=== PATIENT | male | born 1995 | race Caucasian/White ===

== ENCOUNTER 2020-06-27 14:22 | Emergency (ER) | payer MEDICAID, SELFPAY ==
[2020-06-27 14:23] VITALS: BP 127/82; PULSE 93; RESP 16; TEMP 37.1; O2SAT 98; BMI 23.9
--- NOTE | 2020-06-27 14:47 | ED.VIS.GEN ---
History of Present Illness Chief Complaint: Other, Pain/Inj Informant: Patient Narrative: Patient is a previously healthy 24-year-old male who presents to the emergency department for right shoulder pain. This has been present over the past 2 days. He woke up in the morning and the pain was there. He is not sure if he slept funny on it. He does use his right arm with repetitive movements at work. Denies any other strenuous or abnormal activity to incite the event. He has not been taking anything for this. Any movement of the right arm or neck makes the pain worse. At rest it does not bother him too much. He denies any loss of sensation of the extremity. Has never had this happen before in the past. Denies any headache. No chest pain or shortness of breath. No overlying skin changes. No joint swelling. Past Medical History - Allergies and Home Meds Allergies/Adverse Reactions: Allergies No Known Allergies Allergy (Verified 06/27/20 14:23) Primary Care Physician: Care Physician,No Primary [Primary Care Provider] - Prior records reviewed: Yes Past Medical History: None Surgical History: no surgical history Smoking Status: Current every day smoker Alcohol: Rare Drugs: None Review of Systems All systems negative except as indicated General: Denies: Chills, Fever, Sweats Eyes: Denies: Visual changes - bilaterally ENT: Denies: Rhinorrhea, Sore throat Cardiovascular: Denies: Chest pain, Palpitations Respiratory: Denies: Dyspnea, Cough, Dyspnea on exertion Gastrointestinal: Denies: Abdominal pain, Nausea, Vomiting Genitourinary: Denies: Dysuria, Hematuria, Frequency Musculoskeletal: Reports: Neck pain - Right-sided, Extremity Pain - Right shoulder. Denies: Myalgias, Back pain, Swelling Skin: Denies: Rash, Wounds Neurological: Denies: Headache, Weakness, Numbness Physical Exam Vital Signs/Narrative: Vital Signs Temp Pulse Resp BP Pulse Ox 06/27/20 14:23 98.7 F 93 16 127/82 H 98 Inital Vital Signs reviewed: Yes General: Well nourished, Well developed, No Acute Distress Head: Normocephalic, Atraumatic Eyes: Perrl, EOMI ENT: Moist mucous membranes, No rhinorrhea Neck: Supple, Nontender, - - No midline spine tenderness Cardiovascular: Regular rate, Regular rhythm, No murmurs Respiratory: No distress, CTA bilaterally, Chest nontender Abdomen: Soft, Nontender, Nondistended Back: Nontender, Normal Inspection Extremities: Nontender, No edema, Tenderness - Right trapezius tenderness to palpation. Does feel tight musculature along the right cervical paraspinal musculature. No overlying skin changes. 5 out of 5 muscle strength in both extremities. 2+ radial pulse. Has full range of motion of the right shoulder. Skin: Normal color, No rash Neurological: Alert, Oriented x3, Cranial nerves II-XII grossly intact, Normal Strength, Normal Sensation Psychological: Normal affect, Normal Mood Diagnostic/Tx/Re-eval - Medical Decision Making Patient presents to the emerge part for nontraumatic right shoulder/right neck pain. On physical exam he does have tight musculature and is tender to palpation. Movements make it worse. This does seem musculoskeletal in nature. No chest pain or shortness of breath. Vital signs within normal limits. This does not seem like a referred pain. I do recommend he trial ibuprofen and Tylenol [id number]. If this does not help he can take Flexeril. He understands that this will make him tired and should not operate machinery while taking it. He does not have a PCP so he was given a follow-up from the doc list. If this pain continues get worse or develops any other concerning symptoms he is to return to the [facility] department immediately. He understands and is agreeable this plan. He is requesting a work excuse from yesterday today but will be provided one for today. ED Disposition - Plan for ED Patient: Disposition: Home or Assisted Living Diagnosis: Right shoulder pain Instructions: ED Shoulder Pain Uncertain Cause Prescriptions: cycloBENZAPRine HCl [Flexeril] 10 mg PO TID PRN 3 Days #9 tab PRN Reason: Muscle Spasm Prescription Printed Referrals: Care Physician,No Primary [Primary Care Provider] - Vasyl,Jocelyne, DO [NON-STAFF] - 3-5 Days
== END 2020-06-27 15:07 | disposition home or self-care (01) ==
PROVIDERS: Emergency Provider Emergency Medicine
DX: M25.511 Pain in right shoulder (principal); F17.200 Nicotine dependence, unspecified, uncomplicated
CPT/HCPCS: 99282

== ENCOUNTER 2020-10-16 08:41 | Emergency (ER) | payer MEDICAID, SELFPAY ==
[2020-10-16 08:42] VITALS: BP 143/87; PULSE 85; RESP 17; TEMP 36.6; O2SAT 100
--- NOTE | 2020-10-16 08:55 | ED.DCSUM_ITS ---
History of Present Illness Chief Complaint: Abd Pain Informant: Patient Onset: Yesterday Context: Sudden Onset Timing: Continuous Quality: Pain Location: Left upper quadrant Current Severity: Mild Maximum Severity: Moderate Worsened by: Movement Relieved by: Lying down Associated Symptoms: Nausea, decreased urine output Narrative: Patient is a 24-year-old male who presents with left upper quadrant bowel pain. The pain is associated with nausea without vomiting, diarrhea or constipation. He is not noted any change in the color of his stool, consistency of his stool or caliber of his stool. He denies fever, chills or night sweats. He denies prior episode. He denies cough or pleuritic chest pain. He does report decreased urine output for 2 weeks. He denies urgency, frequency or hematuria. There is no history of renal ureterolithiasis. He denies history of pancreatitis or alcohol consumption. He does admit to smoking 1 pack/day and use of marijuana. There is no history of trauma. He has not noted any rash or skin lesions. Prior similar symptoms: No Recent Illness/Hospitalization: No - Past Medical History (1) No significant past medical history Status: Acute Past Medical History - Allergies and Home Meds Allergies/Adverse Reactions: Allergies No Known Allergies Allergy (Verified 10/16/20 08:42) Primary Care Physician: Care Physician,No Primary [Primary Care Provider] - Prior records reviewed: No Past Medical History: None Surgical History: no surgical history Lives: Alone Smoking Status: Current every day smoker Alcohol: None Drugs: Marijuana Review of Systems General: Denies: Chills, Fever, Malaise, Subjective, Sweats, Weight loss Eyes: Denies: Visual changes - bilaterally, Blurred Vision - bilaterally ENT: Denies: Bilateral ear pain, Rhinorrhea, Sore throat Cardiovascular: Denies: Chest pain, Palpitations, Heart racing Respiratory: Denies: Dyspnea, Cough, Dyspnea on exertion Gastrointestinal: Reports: Abdominal pain, Nausea. Denies: Vomiting, Diarrhea, Constipation, Melena, Hematochezia Genitourinary: Reports: - - Decreased urine output as previously documented. Denies: Dysuria, Hematuria, Frequency Musculoskeletal: Denies: Myalgias, Arthralgias, Neck pain, Back pain, Swelling, Extremity Pain, -, - Skin: Denies: Rash, Wounds Neurological: Denies: Headache, Weakness, Numbness Psych: Denies: Depression, Anxiety Endocrine: Denies: Polyuria, Polydipsia Hematologic: Denies: Easy bruising, Easy bleeding Physical Exam Vital Signs/Narrative: Vital Signs Temp Pulse Resp BP Pulse Ox 10/16/20 08:42 97.8 F 85 17 143/87 H 100 Inital Vital Signs reviewed: Yes General: Well nourished, Well developed, No Acute Distress, - - Appears uncomfortable. Head: Normocephalic, Atraumatic Eyes: Perrl, EOMI. Negative for: Pale conjunctiva, Scleral icterus Neck: Supple, Nontender, No lymphadenopathy, No JVD Cardiovascular: Regular rate, Regular rhythm, No murmurs, Normal S1, Normal S2 Respiratory: No distress, CTA bilaterally, Chest nontender Abdomen: Soft, Nondistended, No masses, Tender, Guarding - Left upper quadrant., Hypoactive bowel sounds, - - Abdomen is tympanic to percussion.. Negative for: Nontender, Normal bowel sounds, Rebound tenderness, Hyperactive bowel sounds, Hepatomegaly, Splenomegaly, Mass, Pulsatile mass, Ventral hernia, Umbilical hernia Back: Nontender, Normal Inspection. Negative for: CVA tenderness Extremities: Nontender, No edema Skin: Normal color, No rash, No Trauma. Negative for: Cyanosis, Diaphoresis, Jaundice Neurological: Alert, Oriented x3, Cranial nerves II-XII grossly intact, Normal Strength, Normal Sensation Psychological: Normal affect Diagnostic/Tx/Re-eval Impressions Abdomen/Pelvis CT 10/16/20 10:43 IMPRESSION: Normal enhanced CT of the abdomen and pelvis. Electronically Signed: Hernan Sesay, at 11:15 EST , Service support , 10/16/20 10:43 Abdomen/Pelvis W IV Cont ONLY [CT] Stat Laboratory Results 10/16/20 10/16/20 10/16/20 09:00 09:00 09:05 WBC 9.7 RBC 4.61 Hgb 14.4 Hct 43.4 MCV 94.1 H MCH 31.2 MCHC 33.2 RDW Std Deviation 42.8 RDW Coeff of Susi 12.4 Plt Count 176 MPV 11.8 Immature Gran % (Auto) 0.300 Neut % (Auto) 64.9 Lymph % (Auto) 27.7 [place] % (Auto) 5.1 Eos % (Auto) 1.7 Baso % (Auto) 0.3 Absolute Neuts (auto) 6.3 Absolute Lymphs (auto) 2.67 Nucleated RBC % 0 Sodium 143 Potassium 3.8 Chloride 107 Carbon Dioxide 29.0 Anion Gap 7 BUN 9 Creatinine 0.94 Estim Creat Clear Calc 93.75 Est GFR (MDRD) Af Amer 126 Est GFR (MDRD) Non-Af 104 BUN/Creatinine Ratio 9.6 L Glucose 106 Calcium 8.9 Total Bilirubin 0.40 AST 11 L ALT 18 Alkaline Phosphatase 70 Total Protein 7.1 Albumin 4.2 Globulin 2.9 Albumin/Globulin Ratio 1.4 Lipase 44 L Urine Color Yellow Urine Clarity Clear Urine pH 6.0 Ur Specific [place] 1.020 Urine Protein Negative Urine Glucose (UA) Normal Urine Ketones Negative Urine Occult Blood Negative Urine Nitrite Negative Urine Bilirubin Negative Urine Urobilinogen Normal Ur Leukocyte Esterase Negative Urine RBC 0 SEEN Urine WBC 0 SEEN Ur Squamous Epith Cells 0-5 SEEN Urine Bacteria RARE Urine Mucus 0 SEEN Patient's work-up which included a CBC, comprehensive metabolic panel, lipase, UA and CAT scan are all normal. Patient was informed the cause of his pain is unknown. - Medical Decision Making Differential diagnosis includes abdominal pain of unknown etiology, peptic ulcer disease, pancreatitis, lower lung pneumonia (with no respiratory symptoms and no auscultatory abnormalities). Appropriate lab was ordered. Since he does appear uncomfortable and is tender with guarding he was medicated with morphine and Zofran for his nausea. ED Disposition - Plan for ED Patient: Disposition: Home or Assisted Living Diagnosis: Left upper quadrant abdominal pain of unknown etiology Instructions: ED Unknown Causes of Abdominal Pain Male Prescriptions: Dicyclomine HCl [Bentyl] 20 mg PO TIDAC #20 cap Transmission Status: Pending to [id number] Referrals: Care Physician,No Primary [Primary Care Provider] - Fred Wallace MD [STAFF PHYSICIAN] - 3-5 Days if not improving
[2020-10-16 09:09] LABS: Absolute Lymphocyte Count 2.67 X10^3/uL (0.83-4.51); Absolute Neutrophil Count 6.3 X10^3/uL (2.0-7.7); Basophil# 0.03 X10^3/uL; Basophil% 0.3 % (0-1); Eosinophil# 0.16 X10^3/uL; Eosinophils% 1.7 % (0-5); Hematocrit 43.4 % (40-54); Hemoglobin 14.4 g/dL (13.0-16.5); Lymphocyte # 2.67 X10^3/ul (4.0); Lymphocyte % 27.7 % (19-41); Mean Corp Hgb Conc 33.2 g/dL (32-36); Mean Corpuscular Hgb 31.2 pg (27.0-32.0); Mean Corpuscular Volume 94.1 fL (80-94); Mean Platelet Vol. 11.8 fl (6.2-12.0); Monocyte# 0.49 X10^3/uL; Monocyte% 5.1 % (0-10); NRBC Flagged by Analyzer 0 % (0-5); Neutrophil # 6.27 X10^3/uL (2.7-7.7); Neutrophil % 64.9 % (47-70); Platelet Count 176 K/mm3 (150-450); RBC Distribution Width CV 12.4 % (11.6-14.6); RBC Distribution Width SD 42.8 fl (35.1-43.9); Red Blood Count 4.61 M/mm3 (4.6-6.2); White Blood Count 9.7 K/mm3 (4.4-11.0)
[2020-10-16] MEDS: 0.9% Normal Saline 1,000 ML 150 ML IV (09:10)
[2020-10-16] MEDS: Ondansetron 4 MG/2 ML Vial IV (09:11)
[2020-10-16] MEDS: Morphine 4 MG/ML Syringe IV (09:12)
[2020-10-16 09:21] LABS: Mucous, Urine 0 SEEN /hpf (<or=2+); Red Blood Cells-Urine 0 SEEN /hpf (0-5); White Blood Cells 0 SEEN /hpf (0-5)
[2020-10-16 09:22] LABS: ALB/GLOB Ratio 1.4 RATIO (0.9-2.4); AST(SGOT) 11 U/L (15-37); Alanine Aminotransfer ALT/SGPT 18 U/L (16-61); Albumin, Serum 4.2 g/dL (3.2-5.0); Alkaline Phosphatase 70 U/L (45-117); Anion Gap 7 (5-15); BUN 9 mg/dL (7-18); BUN/Creat Ratio 9.6 RATIO (10-20); Calcium,Total 8.9 mg/dL (8.5-10.1); Chloride 107 mmol/L (98-107); Creatinine, Serum 0.94 mg/dL (0.70-1.30); EST Glomerular Filtration Rate 104 mL/min (>60); Est Glom Filt Rate - Afr Amer 126 mL/min (>60); Estimated Creatinine Clearance 93.75 ml/min; Globulin 2.9 g/dL (2.2-4.2); Glucose 106 mg/dL (74-106); Lipase 44 U/L (73-393); Potassium 3.8 mmol/L (3.5-5.1); Protein, Total 7.1 g/dL (6.4-8.2); Sodium Level 143 mmol/L (136-145)
[2020-10-16 09:56] LABS: Color, Urine Yellow (Yellow); Glucose, Dipstick Normal (Normal); Ketone-Dipstick Negative (Negative); Leukocyte Esterase-Dipstick Negative /ul (Negative); Nitrite-Dipstick Negative (Negative); Occult Blood-Urine Negative /ul (Negative); Protein-Dipstick Negative (Negative); Urine Bilirubin Dipstick Negative (Negative); Urine Clarity Clear (Clear); Urine Urobilinogen Normal (Normal)
[2020-10-16 10:23] LABS: Bacteria RARE /hpf (None Seen); Squamous Epithelial Cells - UA 0-5 SEEN /hpf (0-5)
--- NOTE | 2020-10-16 10:43 | CT_ITS ---
STUDY: CT ABDOMEN AND PELVIS WITH CONTRAST REASON FOR EXAM: Male, 24 years old. LUQ PAIN STARTING LAST NIGHT RADIATION DOSAGE (If Supplied By Facility): CTDIvol = ( 7.67 ) mGy, DLP = ( 253.91 ) mGycm TECHNIQUE: Transaxial images were obtained from the dome of the diaphragm to the symphysis pubis without oral contrast. IV 100mL Isovue-370 was administered. Sagittal and coronal images were reconstructed. Individualized dose optimization techniques were used for this CT. COMPARISON: None. FINDINGS: The visualized lung bases are unremarkable. The visualized portions of the heart are within normal limits. Normal liver. Normal gallbladder and extrahepatic biliary system. Normal spleen. Normal pancreas. Normal bilateral adrenal glands. Normal right kidney. Normal left kidney. Normal visualized stomach. Normal small intestine. Normal colon. The appendix is visualized and appears normal. Normal abdominal aorta. Normal inferior vena cava. Normal retroperitoneum. Normal urinary bladder. Normal abdominal wall. Normal osseous structures. CT/Abdomen/Pelvis W IV Cont ONLY IMPRESSION: Normal enhanced CT of the abdomen and pelvis. Electronically Signed: Hernan Sesay, at 11:15 EST , Service support ,
[2020-10-16 12:59] VITALS: BP 121/69; RESP 17
== END 2020-10-16 13:05 | disposition home or self-care (01) ==
PROVIDERS: Emergency Provider Emergency Medicine
DX: R10.12 Left upper quadrant pain (principal); F17.200 Nicotine dependence, unspecified, uncomplicated
CPT/HCPCS: 74177; 80053; 81001; 83690; 85025; 96374; 96375; 99283; Q9967; A4216; J2405

== ENCOUNTER 2020-10-22 16:23 | Emergency (ER) | payer MEDICAID, SELFPAY ==
[2020-10-22 16:25] VITALS: BP 133/80; PULSE 78; RESP 17; TEMP 36.3; O2SAT 99; BMI 21.0
--- NOTE | 2020-10-22 16:42 | ED.VISSUMM ---
- ER Visit Summary Date of Service: 10/22/20 Chief Complaint: Left upper quadrant abdominal pain History of Present Illness: The patient is a 24 M no significant past medical or surgical history. Patient states he started having neck abdominal pain left upper quadrant about a week ago last Friday. He was seen in the emergency department on . At that time he had negative labs and a negative CT abdomen pelvis. He denies any dysuria. He denies any fever. He denies any trauma. He denies any melena. Denies any hematemesis. No prior abdominal surgeries. Describes the pain as a burning. It is constant. He also states now that he thinks that he has an abnormality on top of his left testicle. Physical Examination: Appearing young male. Vital signs stable afebrile. No distress. H EENT exam unremarkable. Moist with membranes. Neck nontender. Lungs clear to auscultation bilaterally. Heart regular rate and rhythm no murmur. Abdomen soft. Nondistended normal bowel sounds no peritoneal signs. Tenderness left upper quadrant only. Right upper and right lower quadrant unremarkable. No signs of trauma. No bruising. Normal bowel sounds. No hernias or masses. No signs of obstruction. Normal bowel sounds. External exam is a fullness on the anterior superior aspect of his left testicle that may be his epididymis. There is no obvious mass. There is no torsion. There is no exquisite tenderness. No discoloration or any signs of trauma. No inguinal lymphadenopathy. Circumcised male. Moving all 4 extremities. Back nontender. Neurologically is awake and alert with no focal motor deficits. Skin normal. Test Results: CBC, chemistry and lipase were all normal. No change from prior. Repeat exam patient is doing well and will be discharged to home. Emergency Department Course and Treatment: I reviewed the patient's last visit. His labs and CT were unremarkable. He was treated with Bentyl for his discomfort I will repeat some labs. Clinically this may be like a gastritis. Patient it deftly does not appear to be an appendicitis or cholecystitis. He will be treated with Protonix p.o. Treatment Plan: Protonix twice daily for first 10 days and then daily as needed. Follow-up with a local physician if not improving. Disposition: Discharge Impression: Acute left upper quadrant abdominal pain Acute gastritis. This note was generated with [employer] software. It may contain incorrect words, spelling, and punctuation that were not noted in review of the chart prior to signing ED Disposition - Plan for ED Patient: Disposition: Home or Assisted Living Instructions: ED Gastritis Prescriptions: Pantoprazole Sodium [Protonix] 40 mg PO BID #30 tab Prescription Printed Referrals: Denis Garcia MD [STAFF PHYSICIAN] - 1 Week if not improving Additional Instructions: Brutus diet increase slowly as tolerated. This is most likely from gastritis or inflammation of your stomach. Protonix twice a day for the first 10 days and then once daily as needed. Avoid alcohol or really spicy foods. Follow-up if not improving return if worse.
[2020-10-22] MEDS: Pantoprazole Sodium 40 MG Tablet PO (16:49)
[2020-10-22 17:00] LABS: Absolute Lymphocyte Count 2.13 X10^3/uL (0.83-4.51); Absolute Neutrophil Count 5.3 X10^3/uL (2.0-7.7); Basophil# 0.04 X10^3/uL; Basophil% 0.5 % (0-1); Eosinophil# 0.09 X10^3/uL; Eosinophils% 1.1 % (0-5); Hematocrit 47.2 % (40-54); Hemoglobin 15.8 g/dL (13.0-16.5); Lymphocyte # 2.13 X10^3/ul (4.0); Lymphocyte % 26.5 % (19-41); Mean Corp Hgb Conc 33.5 g/dL (32-36); Mean Corpuscular Hgb 31.1 pg (27.0-32.0); Mean Corpuscular Volume 92.9 fL (80-94); Mean Platelet Vol. 11.7 fl (6.2-12.0); Monocyte# 0.45 X10^3/uL; Monocyte% 5.6 % (0-10); NRBC Flagged by Analyzer 0 % (0-5); Neutrophil # 5.31 X10^3/uL (2.7-7.7); Neutrophil % 65.9 % (47-70); Platelet Count 218 K/mm3 (150-450); RBC Distribution Width SD 41.3 fl (35.1-43.9); Red Blood Count 5.08 M/mm3 (4.6-6.2); White Blood Count 8.1 K/mm3 (4.4-11.0)
[2020-10-22 17:08] LABS: Anion Gap 7 (5-15); BUN 12 mg/dL (7-18); BUN/Creat Ratio 12.5 RATIO (10-20); Calcium,Total 9.4 mg/dL (8.5-10.1); Chloride 105 mmol/L (98-107); Creatinine, Serum 0.96 mg/dL (0.70-1.30); EST Glomerular Filtration Rate 102 mL/min (>60); Est Glom Filt Rate - Afr Amer 123 mL/min (>60); Estimated Creatinine Clearance 90.46 ml/min; Glucose 103 mg/dL (74-106); Lipase 31 U/L (73-393); Potassium 4.1 mmol/L (3.5-5.1); Sodium Level 139 mmol/L (136-145)
[2020-10-22 17:52] VITALS: RESP 18
== END 2020-10-22 17:53 | disposition home or self-care (01) ==
PROVIDERS: Emergency Provider Emergency Medicine
DX: R10.12 Left upper quadrant pain (principal); K29.00 Acute gastritis without bleeding; F17.200 Nicotine dependence, unspecified, uncomplicated
CPT/HCPCS: 80048; 83690; 85025; 99283; A4216

== ENCOUNTER 2021-03-20 21:13 | Emergency (ER) | payer MEDICAID, SELFPAY ==
[2021-03-20 21:13] VITALS: BP 134/70; PULSE 89; RESP 18; TEMP 36.9; O2SAT 100; BMI 20.7
--- NOTE | 2021-03-20 21:24 | CT_ITS ---
HISTORY: Kidney Stone TECHNIQUE: Helically acquired images were obtained of the abdomen and pelvis without oral or IV contrast. A radiation dose optimization technique was used for this scan. COMPARISON: CT scan of the abdomen and pelvis from October 16, 2020 FINDINGS: # of images incl. paperwork: 412 LUNG BASES: clear. CT abdomen: Bones are unremarkable. The gallbladder remains. Liver, spleen, pancreas, and adrenal glands are normal. The kidneys are normal. The aorta is normal. There is no intra-or extrahepatic biliary ductal dilatation. CT pelvis: No ascites is present. The prostate gland is not enlarged. The appendix is normal. Series 2 image 106. The bladder is decompressed. Bowel gas pattern is normal. CT/Abdomen/Pelvis without Cont IMPRESSION: No acute intra-abdominal or pelvic disease. Individualized dose optimization techniques were used for this CT. at 2206 Reported and signed by: Juan See MD Electronically Signed: Juan See MD at 22:05 EDT Tel , Service support ,
--- NOTE | 2021-03-20 21:26 | ED.VIS.GEN ---
History of Present Illness Chief Complaint: Abd Pain Informant: Patient Onset: Hours Context: Sudden Onset Timing: Continuous, Waxes and wanes Quality: Crampy Location: Left mid abdomen and flank Current Severity: Moderate Maximum Severity: Severe Worsened by: Movement Relieved by: Nothing Associated Symptoms: Nausea Narrative: Patient is 25-year-old male who presents from work because of abrupt onset of colicky left-sided abdominal/flank pain. He denies prior history of renal or ureteral stone. He did report nausea with onset at 1700. He denies dysuria, frequency, urgency or hematuria. He denies intolerance to greasy or fried foods. He denies history of pancreatitis. He does admit to smoking 1 pack/day. He denies alcohol or drug use. He denies history of trauma. He has not noted a rash. He denies fever or chills. He denies night sweats or weight loss. He denies radiation of the pain into his groin. He denies history of Crohn's disease or ulcerative colitis. Prior similar symptoms: No Recent Illness/Hospitalization: No - Past Medical History (1) No significant past medical history Status: Acute Past Medical History - Allergies and Home Meds Allergies/Adverse Reactions: Allergies No Known Allergies Allergy (Verified 03/20/21 21:15) Primary Care Physician: Care Physician,No Primary [Primary Care Provider] - Prior records reviewed: No Surgical History: no surgical history Lives: Alone Smoking Status: Current every day smoker Alcohol: None Drugs: None Review of Systems General: Denies: Chills, Fever, Malaise, Sweats, Weight loss Eyes: Denies: Visual changes - bilaterally, Blurred Vision - bilaterally ENT: Denies: Right ear pain, Rhinorrhea, Sore throat Cardiovascular: Denies: Palpitations Respiratory: Denies: Dyspnea, Cough, Dyspnea on exertion Gastrointestinal: Reports: Abdominal pain, Nausea. Denies: Vomiting, Diarrhea, Constipation, Melena, Hematochezia Genitourinary: Denies: Dysuria, Hematuria, Frequency Musculoskeletal: Reports: Back pain. Denies: Myalgias, Arthralgias, Neck pain, Swelling, Extremity Pain, -, - Skin: Denies: Rash, Wounds Neurological: Denies: Weakness, Parasthesia Hematologic: Denies: Easy bruising, Easy bleeding Physical Exam Vital Signs/Narrative: Vital Signs Temp Pulse Resp BP Pulse Ox 03/20/21 21:13 98.5 F 89 18 134/70 H 100 Inital Vital Signs reviewed: Yes General: Well nourished, Well developed, No Acute Distress Head: Normocephalic, Atraumatic Eyes: Perrl, EOMI ENT: Moist mucous membranes, No rhinorrhea Neck: Supple, Nontender Cardiovascular: Regular rate, Regular rhythm, No murmurs Respiratory: No distress, CTA bilaterally, Chest nontender Abdomen: Soft, Nondistended, Normal bowel sounds, Tender - Tenderness over the left kidney to deep palpation.. Negative for: Guarding, Rebound tenderness, Hepatomegaly, Splenomegaly, Mass, Pulsatile mass Rectal: Deferred Back: Nontender, Normal Inspection, CVA tenderness Extremities: Nontender, No edema Skin: Normal color, No rash Neurological: Alert, Oriented x3, Cranial nerves II-XII grossly intact, Normal Strength, Normal Sensation Psychological: Normal affect, Normal Mood Diagnostic/Tx/Re-eval Impressions Abdomen/Pelvis CT 03/20/21 21:24 IMPRESSION: No acute intra-abdominal or pelvic disease. Individualized dose optimization techniques were used for this CT. at 2206 Reported and signed by: Juan See MD Electronically Signed: Juan See MD at 22:05 EDT Tel , Service support , 03/20/21 21:24 Abdomen/Pelvis without Cont [CT] Stat Laboratory Results 03/20/21 03/20/21 21:35 21:35 Sodium 138 Potassium 3.9 Chloride 104 Carbon Dioxide 31.0 Anion Gap 3 L BUN 11 Creatinine 0.84 Estim Creat Clear Calc 107.81 Est GFR (MDRD) Af Amer 143 Est GFR (MDRD) Non-Af 118 BUN/Creatinine Ratio 13.1 Glucose 109 H Calcium 8.9 Urine Color Yellow Urine Clarity Clear Urine pH 7.0 Ur Specific [place] 1.010 Urine Protein Negative Urine Glucose (UA) Normal Urine Ketones Negative Urine Occult Blood Negative Urine Nitrite Negative Urine Bilirubin Negative Urine Urobilinogen Normal Ur Leukocyte Esterase Negative Urine RBC 0 SEEN Urine WBC 0 SEEN Ur Squamous Epith Cells 0 SEEN Urine Bacteria 0 SEEN Urine Mucus 0 SEEN T of the pelvis was reviewed by me and agree there is no acute abnormality noted. Urine is unremarkable. Plan is to discharge to home with appropriate oral analgesia for his left flank pain. - Medical Decision Making With abrupt onset of colicky left flank pain radiating anteriorly will obtain UA and CT of the abdomen. He was medicated with IV Toradol and Zofran for his pain and nausea. ED Disposition - Plan for ED Patient: Disposition: Home or Assisted Living Diagnosis: Acute left flank pain Instructions: ED Flank Pain, Uncertain Cause Prescriptions: Naproxen [Naprosyn] 500 mg PO BID #14 tablet Transmission Status: Pending to [facility] [place] [facility] Referrals: Care Physician,No Primary [Primary Care Provider] - Silverio Savage MD [STAFF PHYSICIAN] - 1 Week if not improving Additional Instructions: Apply ice to area 6-8 times a day for 20 to 30 minutes.
[2021-03-20] MEDS: Ketorolac 15 MG/ML Vial IV (21:33)
[2021-03-20] MEDS: Ondansetron 4 MG/2 ML Vial IV (21:33)
[2021-03-20 21:44] LABS: Bacteria 0 SEEN /hpf (None Seen); Mucous, Urine 0 SEEN /hpf (<or=2+); Red Blood Cells-Urine 0 SEEN /hpf (0-5); Squamous Epithelial Cells - UA 0 SEEN /hpf (0-5); White Blood Cells 0 SEEN /hpf (0-5)
[2021-03-20 21:52] LABS: Color, Urine Yellow (Yellow); Glucose, Dipstick Normal (Normal); Ketone-Dipstick Negative (Negative); Leukocyte Esterase-Dipstick Negative /ul (Negative); Nitrite-Dipstick Negative (Negative); Occult Blood-Urine Negative /ul (Negative); Protein-Dipstick Negative (Negative); Urine Bilirubin Dipstick Negative (Negative); Urine Clarity Clear (Clear); Urine Urobilinogen Normal (Normal)
[2021-03-20] MEDS: 0.9% Normal Saline 1,000 ML 250 ML IV (21:55)
[2021-03-20 22:01] LABS: Anion Gap 3 (5-15); BUN 11 mg/dL (7-18); BUN/Creat Ratio 13.1 RATIO (10-20); Calcium,Total 8.9 mg/dL (8.5-10.1); Chloride 104 mmol/L (98-107); Creatinine, Serum 0.84 mg/dL (0.70-1.30); EST Glomerular Filtration Rate 118 mL/min (>60); Est Glom Filt Rate - Afr Amer 143 mL/min (>60); Estimated Creatinine Clearance 107.81 ml/min; Glucose 109 mg/dL (74-106); Potassium 3.9 mmol/L (3.5-5.1); Sodium Level 138 mmol/L (136-145)
== END 2021-03-20 23:13 | disposition home or self-care (01) ==
PROVIDERS: Emergency Provider Emergency Medicine
DX: R10.9 Unspecified abdominal pain (principal); F17.200 Nicotine dependence, unspecified, uncomplicated; R11.0 Nausea
CPT/HCPCS: 74176; 80048; 81001; 96374; 96375; 99283; J7030; A4216; J2405

== ENCOUNTER 2021-12-10 21:40 | Emergency (ER) | payer BC, MEDICAID, SELFPAY ==
[2021-12-10 21:41] VITALS: BP 111/88; PULSE 91; RESP 18; TEMP 36.6; O2SAT 99; BMI 20.2
--- NOTE | 2021-12-10 22:30 | EDS_ITS ---
HPI HPI - URI History of Present Illness Chief Complaint: Cold Sx Informant: patient Onset/Context/Timing Onset: Today Context: Gradual Onset Timing: Continuous Current Severity: Mild Maximum Severity: Mild Associated Symptoms Associated Symptoms: Positive for Nasal Congestion, Myalgias, Nausea, Vomiting, Diarrhea and Productive Cough Narrative Narrative: 26-year-old male who today started in URI symptoms such as diaph oresis, nausea, vomiting diarrhea. Productive cough of yellowish sputum. He is not vaccinated for COVID. Significant other has many close contacts at work that were COVID-positive. Prior similar symptoms: Yes Recent Illness/Hospitalization: No ROS ROS ED ROS Narrative Nausea, vomiting and diarrhea. Review of Systems ROS Unobtainable: Denies due to encephalopathy Constitutional Constitutional ED: Denies fever(s) or subjective Eyes Eyes: Denies change in vision ENT ENT ED: Reports rhinorrhea; Denies ear pain Cardiovascular Cardiovascular: Denies chest pain or palpitations Respiratory/Chest Respiratory/Chest: Reports cough and sputum; Denies dyspnea Gastrointestinal Gastrointestinal: Reports diarrhea, nausea and vomiting; Denies abdominal pain Genitourinary Genitourinary ED: Denies dysuria Musculoskeletal Musculoskeletal: Reports myalgias Integumentary Denies rash Neurologic Neurologic: Denies headache(s) Psychiatric Psychiatric: Denies depression Endocrine Endocrinology: Denies polyuria Hematologic/Lymphatic Hematologic/Lymphatic: Denies easy bruising Allergic/Immunologic Allergic/Immunologic ED: Denies urticaria PFSH PFSH Medical History no medical history no medical history Home Medications naproxen 500 mg PO BID #14 tablet 03/20/21 [Rx Last Taken Unknown] Allergy/AdvReac Type Severity Reaction Status Date / Time No Known Allergies Allergy Verified 03/20/21 21:15 Social History Smoking Status: Current every day smoker tobacco type: cigarettes EXAM Physical Exam Narrative Exam Narrative: 50-year-old male no acute distress vital signs stable afebrile. Does not look septic or toxic. Does not look dehydrated. Pulse ox 99% on room air no hypoxia. HEENT exam unremarkable. Neck nontender no meningismus. Lungs clear to auscultation. Heart regular rhythm no murmur. Abdomen soft nontender. Moving all 4 extremities. Nontender no edema. Neurologically awake and alert with no focal motor deficits. Const Vital Signs: 12/10/21 21:41 12/10/21 22:06 Temperature 97.8 F Temperature Source Temporal Pulse Rate 91 Respiratory Rate 18 Respiratory Effort Normal Blood Pressure 111/88 H Blood Pressure Mean 95 Pulse Ox 99 Oxygen Delivery Method Room Air Positive well nourished and well developed; Negative for obese, cachectic or contractures General Appearance ED: well developed and NAD; Negative for cachectic, contractu res, cyanotic, diaphoretic or pallor Nutritional Appearance: Negative for cachectic or obese HEENT Reports moist mucous membranes normocephalic and atraumatic External Ear: external ears normal Eyes PERRL and EOMs intact bilaterally General Eye ED: Negative for pale conjunctiva or scleral icterus Neck no lymphadenopathy, supple, no meningeal signs and no JVD General: Negative for anterior neck swelling or lymphadenopathy Resp normal respiratory effort and clear to auscultation bilaterally Auscultation: Negative for rales, rhonchi or wheezes Cardio S1 normal heart sound, S2 normal heart sound and no murmurs Rate: regular rate Rhythm: regular rhythm GI non-tender, non-distended and no masses Inspection: Negative for abdominal distention Auscultation: normoactive bowel sounds; Negative for hyperactive bowel sounds or hypoactive bowel sounds Palpation: soft; Negative for tender or guarding Back/Spine no CVA tenderness and normal ROM General Back: Negative for CVA tenderness Cervical Spine: Negative for cervical spine tenderness Thoracic Spine / Upper Back: Negative for thoracic spinal tenderness Lumbar Spine / Lower Back: Negative for lumbar spinal tenderness Extremity normal to inspection and full ROM General Extremety ED: Negative for cyanosis or tenderness General Extremity: Negative for cyanosis Neuro oriented x3 Sensorium / Orientation: alert, oriented to person, oriented to place and oriented to time Motor Exam: strength 5/5 throughout Psych mental status grossly normal Mood & Affect: Negative for depressed Skin General Skin Exam: Negative for jaundice or pallor Lesions: no lesions Rashes: no rashes MDM MDM MDM Narrative Medical decision making narrative: [id number] male COVID-positive. Clinically looks well. Does not look dehydrated. He is not hypoxic. He does not need any steroids at this time nor is he a candidate for monoclonal antibodies. Fluids and rest. Tylenol and Motrin. Follow-up with not improving or return if worse. Lab Data Attestation: I reviewed the patient's lab results. Lab results narrative: Rapid COVID antigen positive. Discharge Plan Triage Chief Complaint: Cold Sx ED Provider: Henry Weaver Dx/Rx/DC Orders Clinical Impression: COVID-19 Instructions: Human Coronaviruses Prescriptions: No Action naproxen 500 MG tablet 500 mg PO BID Qty: 14 RF: 0 Primary Care Provider: Care Physician,No Primary Referrals: Silverio Savage MD [STAFF PHYSICIAN] - 1 Week if not improving Care Physician,No Primary [Primary Care Provider] - Activity Restrictions/Additional Instructions: Plenty of fluids and rest. Alternate Motrin and Tylenol for the body aches, and fevers. Follow-up if not improving return if feeling a lot worse. Home quarantine for the next 5 days if symptom-free may return to work next Friday. Disposition Disposition: Home, Self Care
[2021-12-10] MEDS: Ondansetron ODT 4 MG Tablet PO (22:40)
== END 2021-12-10 22:42 | disposition home or self-care (01) ==
PROVIDERS: Emergency Provider Emergency Medicine; Visit Provider Emergency Medicine
DX: U07.1 COVID-19 (principal); F17.210 Nicotine dependence, cigarettes, uncomplicated
CPT/HCPCS: 87426; 99283

== ENCOUNTER 2022-10-31 23:37 | Emergency (ER) | payer MEDICAID, SELFPAY ==
[2022-10-31 23:38] VITALS: BP 137/77; PULSE 80; RESP 15; TEMP 25.5; O2SAT 98; BMI 21.2
--- NOTE | 2022-10-31 23:51 | ED.VIS.DENTA ---
HPI History of Present Illness Chief Complaint: Dental Informant: patient Narrative Narrative: Patient states he has been having pain on the right side of his jaw for 3 or 4 days. It is more sore if he opens up. He does not know if chewing bothers it as much. He has no fevers or chills. No drainage. No swelling. No change in hearing. No neck pain or chest pain. No trauma. He states he does have some bad teeth but he cannot get into see a dentist because nobody will give them appointments. PFSH PFS Home Medications naproxen 500 mg tablet 500 mg PO BID #20 tabs 10/31/22 [Rx Last Taken Unknown] Allergy/AdvReac Type Severity Reaction Status Date / Time No Known Allergies Allergy Verified 10/31/22 23:38 Social History Smoking Status: Current every day smoker tobacco type: cigarettes ROS ROS ED Constitutional Constitutional ED: Denies chills or fever(s) Eyes Eyes: Denies change in vision ENT ENT ED: Reports other Details: See history of present illness. ; Denies ear pain, rhinorrhea or sore throat Cardiovascular Cardiovascular: Denies chest pain or palpitations Respiratory/Chest Respiratory/Chest: Denies cough or dyspnea Gastrointestinal Gastrointestinal: Denies nausea or vomiting Musculoskeletal Musculoskeletal: Denies neck pain Integumentary Denies rash Neurologic Neurologic: Denies headache(s) Hematologic/Lymphatic Hematologic/Lymphatic: Denies lymphadenopathy EXAM Physical Exam Const Vital Signs: 10/31/22 23:38 Temperature 78 F L Temperature Source Temporal Pulse Rate 80 Respiratory Rate 15 Blood Pressure 137/77 H Blood Pressure Mean 97 Pulse Ox 98 Oxygen Delivery Method Room Air Positive well nourished and well developed General Appearance ED: well developed and NAD; Negative for pallor HEENT HEENT Narrative: Patient has no tenderness at the tragus. The canal and tympanic membrane are clear. He does have right-sided TMJ pain. Just pressing in that joint area is sore for him. But there is no swelling. It is sore for him to open also. There is no facial swelling. He has some mildly poor dentition. There is a cavity in an upper premolar. But there is no tenderness at all. There is no erythema of the gums. No drainage. No Ludewig's angina. Voice is normal. He handles secretions normally. His exam is consistent with TMJ. Eyes EOMs intact bilaterally Neck no lymphadenopathy and no JVD General: Negative for anterior neck swelling, tenderness or submandibular swelling Lymph Lymphatic: no lymphadenopathy noted Resp normal respiratory effort and clear to auscultation bilaterally Cardio regular rate Neuro Sensorium / Orientation: alert Psych mental status grossly normal Skin no rashes or lesions noted General Skin Exam: Negative for pallor MDM MDM MDM Narrative Medical decision making narrative: Exam and history is really consistent with TMJ. I do not see any indication for antibiotics. We discussed ice, change in activities, bite guard and nonsteroidal use. We discussed returning if he develops fevers chills swelling or other concerns. Discharge Plan Triage Chief Complaint: Dental ED Provider: David Estrada Dx/Rx/DC Orders Clinical Impression: Right-sided temporomandibular joint pain-dysfunction syndrome Instructions: TMJ Tx Prescriptions: New naproxen 500 mg tablet 500 mg PO BID Qty: 20 0RF Primary Care Provider: Care Physician,No Primary Referrals: Lj Fernandez MD [Med Staff - [facility]] - 10-14 Days if not better Care Physician,No Primary [Primary Care Provider] - Disposition Disposition: Home, Self Care
[2022-11-01] MEDS: Naproxen 500 MG Tablet PO (00:10)
== END 2022-11-01 00:11 | disposition home or self-care (01) ==
LOC: ED 11-01 00:01
PROVIDERS: Emergency Provider Emergency Medicine; Visit Provider Emergency Medicine
DX: M26.621 Arthralgia of right temporomandibular joint (principal); F17.210 Nicotine dependence, cigarettes, uncomplicated
CPT/HCPCS: 99283

== ENCOUNTER → 2023-03-24 | Outpatient (CLI) | payer MEDICAID, SELFPAY ==
[2023-03-24 17:59] LABS: Absolute Lymphocyte Count 1.55 X10^3/uL (0.83-4.51); Absolute Neutrophil Count 3.6 X10^3/uL (2.0-7.7); Basophil# 0.05 X10^3/uL; Basophil% 0.9 % (0-1); Eosinophil# 0.14 X10^3/uL; Eosinophils% 2.4 % (0-5); Hematocrit 44.5 % (40-54); Hemoglobin 14.9 g/dL (13.0-16.5); Lymphocyte # 1.55 X10^3/ul (0.83-4.51); Lymphocyte % 27.1 % (19-41); Mean Corp Hgb Conc 33.5 g/dL (32-36); Mean Corpuscular Hgb 30.4 pg (27.0-32.0); Mean Corpuscular Volume 90.8 fL (80-94); Mean Platelet Vol. 12.1 fl (6.2-12.0); Monocyte# 0.37 X10^3/uL; Monocyte% 6.5 % (0-10); NRBC Flagged by Analyzer 0 % (0-5); Neutrophil % 62.9 % (47-70); Platelet Count 187 K/mm3 (150-450); RBC Distribution Width CV 12.3 % (11.6-14.6); RBC Distribution Width SD 41.1 fl (35.1-43.9); White Blood Count 5.7 K/mm3 (4.4-11.0)
[2023-03-24 18:22] LABS: Vitamin B12 658 pg/mL (211-911); Vitamin D,25 Hydroxy 15.5 ng/mL
[2023-03-24 18:56] LABS: ALB/GLOB Ratio 1.5 RATIO (0.9-2.4); AST(SGOT) 21 U/L (15-37); Alanine Aminotransfer ALT/SGPT 22 U/L (16-61); Albumin, Serum 4.2 g/dL (3.2-5.0); Alkaline Phosphatase 73 U/L (45-117); Anion Gap 4 (5-15); BUN 11 mg/dL (7-18); BUN/Creat Ratio 13.6 RATIO (10-20); Calcium,Total 8.8 mg/dL (8.5-10.1); Chloride 106 mmol/L (98-107); Creatinine, Serum 0.81 mg/dL (0.70-1.30); EST Glomerular Filtration Rate 122 mL/min (>60); Est Glom Filt Rate - Afr Amer 147 mL/min (>60); Ferritin 110 ng/mL (26-388); Globulin 2.8 g/dL (2.2-4.2); Glucose 94 mg/dL (74-106); Potassium 3.9 mmol/L (3.5-5.1); Sodium Level 136 mmol/L (136-145)
== END | disposition home or self-care (01) ==
LOC: MFPLAB 16:16
PROVIDERS: Visit Provider Family Medicine
DX: R53.83 Other fatigue (principal)
CPT/HCPCS: 36415; 80053; 82306; 82607; 82728; 84443; 85025